=== PATIENT | female | born 1985 | race Caucasian/White ===

== ENCOUNTER 2020-05-25 18:30 | Outpatient (CLI) | payer OTHER ==
[2013-07-23 07:23] VITALS: BMI 18.2
== END 2020-05-25 23:59 | disposition home or self-care (01) ==
LOC: D.MAMMO 18:30
PROVIDERS: ATTEND Family Medicine
DX: N63.21 Unspecified lump in the left breast, upper outer quadrant (principal)

== ENCOUNTER 2021-02-10 08:11 | Emergency (ER) | payer OTHER ==
[~2021-02-10] VITALS: Ht 162.6 cm; Wt 52.3 kg
[2021-02-10 08:24] VITALS: BP 119/77; Ht 162.6 cm; Wt 52.3 kg
[2021-02-10] MEDS ORDERED: [UNRECOGNIZED DRUG - REMARK] (08:25)
[2021-02-10 08:49] LABS: BASOPHILS 0.5 % (0-2); HEMOGLOBIN 14.8 g/dL (12-16); LYMPHOCYTES 28.1 % (15-50); MCH 31.7 pg (26.0-34.0); MCHC 34.4 g/dL (31.0-37.0); MCV 92.2 fL (80.0-100.0); MEAN PLATELET VOLUME 7.2 fL (7.4-10.4); MONOCYTES 7.5 % (2-11); NEUTROPHILS 62.9 % (40-80); PLATELET COUNT 255 10x3/uL (130-400); RBC 4.66 10x6/uL (4.00-5.40); RDW 12.7 % (11.5-14.5); WBC 5.4 10x3/uL (4.8-10.8)
[2021-02-10 08:51] LABS: HCG URINE NEGATIVE (NEGATIVE)
[2021-02-10 08:52] LABS: CALC OSMOLALITY 274 mosm/kg (275-300); CALCIUM 9.5 mg/dL (8.5-10.1); CARBON DIOXIDE 20.3 mmol/L (21.0-32.0); CHLORIDE - SERUM 103 mmol/L (98-107); CREATININE - SERUM 0.6 mg/dL (0.6-1.3); GLUCOSE 75 mg/dL (74-106); POTASSIUM - SERUM 3.9 mmol/L (3.5-5.1); SODIUM 139 mmol/L (136-145); UREA NITROGEN 7 mg/dL (7-18); eGFR NON AFRICAN AMERICAN > 90 mL/min (90-120)
[2021-02-10 08:58] LABS: ALBUMIN 4.9 g/dL (3.4-5.0); ALKALINE PHOSPHATASE 55 U/L (30-120); ALT (SGPT) 15 U/L (10-68); BILIRUBIN - TOTAL 1.09 mg/dL (0.2-1.3); PROTEIN - SERUM 8.1 g/dL (6.4-8.2)
[2021-02-10 09:11] LABS: BACTERIA MOD HPF (<MOD); BILIRUBIN NEGATIVE (NEGATIVE); KETONE 4+ mg/dL (< 1+); NITRITE NEGATIVE (NEGATIVE); PH 5.5 (5.0-8.0); SQUAMOUS EPITHELIAL 45 HPF (0-4); UROBILINOGEN 2 mg/dL (< 2); WHITE CELLS - URINE 10 HPF (0-4)
[2021-02-10] MEDS ORDERED: BACTRIM DS TAB1 EAC1 PO (10:05)
[2021-02-10] MEDS ORDERED: VISTARIL25 MG PO (10:05)
== END 2021-02-10 10:12 | disposition home or self-care (01) ==
LOC: D.ER 08:11
PROVIDERS: Family Medicine
DX: N39.0 Urinary tract infection, site not specified (principal); F41.9 Anxiety disorder, unspecified; F43.21 Adjustment disorder with depressed mood; R11.0 Nausea